=== PATIENT | male | born 1990 ===

== ENCOUNTER 2017-03-30 19:33 | Emergency (ER) | payer MEDICAID ==
--- NOTE | 2017-03-30 21:07 | ED PDOC ---
HPI: General Adult Time Seen by Provider: 03/30/17 20:24 Chief Complaint (Nursing): Flu-like Symptoms Chief Complaint (Provider): Generalized weakness History Per: Patient History/Exam Limitations: no limitations Additional Complaint(s): Patient is a 26 y/o male with no significant past medical history presenting to the emergency department for generalized weakness, nausea, and fatigue since yesterday. States that he sometimes feels breathless as though he is about to collapse. He adds that he is depressed and anxious. Denies fever, cough, vomiting, diarrhea, dizziness, chest pain, abdominal pain, shortness of breath, SI, HI, hallucinations, or other complaints. PCP: Dr. Jeffrey Reinoso Past Medical History Reviewed: Historical Data, Nursing Documentation, Vital Signs Vital Signs: Last Vital Signs Temp 98.6 F 03/30/17 19:37 Pulse 99 H 03/30/17 19:37 Resp 18 03/30/17 19:37 BP 152/85 H 03/30/17 19:37 Pulse Ox 98 03/31/17 01:59 - Medical History PMH: Depression Denies: Diabetes, Hepatitis, HIV, HTN, Chronic Kidney Disease, Seizures, Sexually Transmitted Disease Comment Only: Hyperthyroidism (possible low Thyroid levels) - Family History Family History: States: No Known Family Hx - Home Medications Home Medications: Ambulatory Orders Medication Instructions Recorded Lorazepam [Ativan] 0.5 mg PO BID PRN #10 tab 03/30/17 - Allergies Allergies/Adverse Reactions: Allergies Allergy/AdvReac Type Severity Reaction Status Date / Time No Known Allergies Allergy Verified 03/30/17 19:37 Review of Systems ROS Statement: Except As Marked, All Systems Reviewed And Found Negative Constitutional: Positive for: Weakness, Other ("breathless" fatigue). Negative for: Fever Cardiovascular: Negative for: Chest Pain Respiratory: Negative for: Cough, Shortness of Breath Gastrointestinal: Positive for: Nausea. Negative for: Vomiting, Abdominal Pain Neurological: Negative for: Dizziness Physical Exam - Reviewed Nursing Documentation Reviewed: Yes Vital Signs Reviewed: Yes - Physical Exam Appears: Positive for: Well, Non-toxic, In Acute Distress (+appears anxious) Head Exam: Positive for: ATRAUMATIC, NORMAL INSPECTION, NORMOCEPHALIC Skin: Positive for: Normal Color, Warm, Dry Eye Exam: Positive for: Normal appearance Neck: Positive for: Normal Cardiovascular/Chest: Positive for: Regular Rate, Rhythm. Negative for: Murmur Respiratory: Positive for: Normal Breath Sounds. Negative for: Accessory Muscle Use, Respiratory Distress Gastrointestinal/Abdominal: Positive for: Normal Exam, Soft. Negative for: Tenderness Extremity: Positive for: Normal ROM. Negative for: Pedal Edema Neurologic/Psych: Positive for: Alert, Oriented (x3), Mood/Affect (anxious) - Laboratory Results Result Diagrams: 03/30/17 21:10 03/30/17 21:10 - ECG O2 Sat by Pulse Oximetry: 98 (RA) Pulse Ox Interpretation: Normal Medical Decision Making Medical Decision Making: Time: 21:02 Initial impression: Generalized weakness Initial plan: EKG CMP Urine Drug Screening CBC Ativan 0.5 mg IVP Normal Saline 1 L IV IV Insertion Urinalysis Reevaluation EKG: NSR at 91 bpm, (-) acute ST changes, as read by ALINE. Labs reviewed and are within normal limits. On reevaluation, patient is resting comfortably in bed in no acute distress, reports improvement in his symptoms, states that he feels less anxious and less restless. Patient states that his psychiatrist recently increased his dose of Risperdal and that he also takes Depakote. Otherwise the patient has no additional complaints at this time. Patient notified that he will be seen and evaluated by crisis, which he is agreeable to. Patient is medically cleared for crisis evaluation. Patient still pending crisis evaluation at this time. Case endorsed to ALINE Ward at midnight pending crisis evaluation and final disposition. ~ Scribe Attestation: Documented by Liz Branch, acting as a scribe for ALINE Ramires. Provider Scribe Attestation: All medical record entries made by the Scribe were at my direction and personally dictated by me. I have reviewed the chart and agree that the record accurately reflects my personal performance of the history, physical exam, medical decision making, and the department course for this patient. I have also personally directed, reviewed, and agree with the discharge instructions and disposition. Disposition - Clinical Impression Clinical Impression: Generalized weakness, Anxiety Counseled Patient/Family Regarding: Studies Performed, Diagnosis - Disposition Disposition: Transfer of Care (Case endorsed to ALINE Ward at 0000 pending crisis evaluation and disposition) Disposition Time: 00:00 Condition: IMPROVED Prescriptions: Lorazepam [Ativan] 0.5 mg PO BID PRN #10 tab PRN Reason: Anxiety Instructions: Weakness (ED), Anxiety (ED) Forms: [facility] (Indian), [facility] ED School/Work Excuse
[2017-03-30] MEDS ORDERED: Sodium Chloride 0.9% 1,000 ML IV SCH (21:15)
[2017-03-30 21:21] LABS: BASO % 0.3 % (0.0-2.0); EOS # 0.1 K/uL (0.0-0.7); EOS % 0.8 % (0.0-4.0); HEMOGLOBIN 12.7 g/dL (12.0-18.0); LYMPH # 1.2 K/uL (1.0-4.3); LYMPH % 16.9 % (20.0-40.0); MEAN CELL VOLUME 81.3 fl (80.0-94.0); MEAN CORPUSCULAR HGB CONC 33.3 g/dL (33.0-37.0); MEAN PLATELET VOLUME 8.5 fl (7.2-11.7); MONO # 0.3 K/uL (0.0-0.8); MONO % 4.5 % (0.0-10.0); NEUT # 5.6 K/uL (1.8-7.0); NEUT % 77.5 % (50.0-75.0); NRBC % 0.1 % (0.0-0.0); RBC 4.68 Mil/uL (4.40-5.90); RED CELL DISTRIBUTION WIDTH 13.3 % (11.5-14.5); WHITE BLOOD COUNT 7.3 K/uL (4.8-10.8)
[2017-03-30 21:31] LABS: ALB/GLOB RATIO 1.5 (1.0-2.1); ALBUMIN 4.7 g/dL (3.5-5.0); ALT/SGPT 33 U/L (21-72); AST/SGOT 28 U/L (17-59); BLOOD UREA NITROGEN 13 mg/dl (9-20); CALCIUM 10.3 mg/dL (8.4-10.2); GFR AFRICAN-AMERICAN > 60; GFR NON-AFRICAN AMERICAN > 60
[2017-03-30 22:07] LABS: BARBITURATES, UR NEGATIVE (NEGATIVE); BENZODIAZEPINES, UR NEGATIVE (NEGATIVE); OPIATES, UR NEGATIVE (NEGATIVE); PHENCYCLIDINE, UR NEGATIVE (NEGATIVE)
[2017-03-30 22:20] LABS: URINE BILIRUBIN NEGATIVE (NEGATIVE); URINE BLOOD NEGATIVE (NEGATIVE); URINE CLARITY CLEAR (Clear); URINE COLOR STRAW (YELLOW); URINE GLUCOSE (UA) NEG (Normal); URINE LEUKOCYTE ESTERASE NEG Leu/uL (Negative); URINE NITRATE NEGATIVE (NEGATIVE); URINE PROTEIN NEGATIVE (NEGATIVE); URINE UROBILINOGEN 0.2-1.0 mg/dL (0.2-1.0)
[2017-03-30 22:48] VITALS: BMI 16.2
[2017-03-30 22:49] VITALS: BP 152/85; PULSE 99; RESP 18; TEMP 98.6; O2SAT 98
--- NOTE | 2017-03-31 01:55 | ED PDOC ---
- Laboratory Results Result Diagrams: 03/30/17 21:10 03/30/17 21:10 - ECG O2 Sat by Pulse Oximetry: 98 (RA) - Progress ED Course And Treament: 0000 Signed out to me pending crisis evaluation 0100 Pt. in no distress. Resting comfortably. Reports feeling better. Marily SI/HI, hallucinations. 0153 Pt. evaluated by Edelmira, layup worker, who discussed case with Dr. Drew and cleared pt. for discharge. Disposition - Clinical Impression Clinical Impression: Generalized weakness, Anxiety - POA Present On Arrival: None - Disposition Disposition: Routine/Home Disposition Time: 01:54 Condition: IMPROVED Prescriptions: Lorazepam [Ativan] 0.5 mg PO BID PRN #10 tab PRN Reason: Anxiety Instructions: Weakness (ED), Anxiety (ED) Forms: [facility] (Armenian), [facility] ED School/Work Excuse
--- NOTE | 2017-03-31 17:56 | CARD ---
APPROVED REPORT EKG Measurement Heart [id number] <Conclusion> Normal sinus rhythm with sinus arrhythmia Normal ECG
== END 2017-03-31 02:22 | disposition home or self-care (01) ==
LOC: H.ER 19:33
DX: R53.1 Weakness (principal); F41.9 Anxiety disorder, unspecified; E05.90 Thyrotoxicosis, unspecified without thyrotoxic crisis or storm; F32.9 Major depressive disorder, single episode, unspecified
CPT/HCPCS: 80053; 80320; 80324; 80345; 80346; 80349; 80353; 80358; 80361; 81003; 82948; 83992; 85025; 93005; 96360; 96361; 96374; 99283; J2060; J7040

== ENCOUNTER 2018-06-13 15:47 | Emergency (ER) | payer MEDICAID ==
[2018-06-13 15:47] VITALS: BMI 16.2
--- NOTE | 2018-06-13 17:49 | RAD ---
Date of service: 06/13/2018 HISTORY: pain COMPARISON: No prior. TECHNIQUE: 2 views obtained. FINDINGS: BONES: No anterior-posterior subluxation. Trace rightward convexity to the thoraco lumbar spine could be positional.. No fracture. DISC SPACES: Normal. SOFT TISSUES: Normal. OTHER FINDINGS: None. IMPRESSION: No fracture or lytic lesions. Other findings as above.
[2018-06-13 17:59] VITALS: BP 122/60; PULSE 71; RESP 18; TEMP 98; O2SAT 99
--- NOTE | 2018-06-13 19:05 | ED PDOC ---
HPI: Back Time Seen by Provider: 06/13/18 16:29 Chief Complaint (Nursing): Back Pain Chief Complaint (Provider): Back Pain History Per: Patient History/Exam Limitations: no limitations Onset/Duration Of Symptoms: Days (x2) Current Symptoms Are (Timing): Better Additional Complaint(s): Patient is a 28 y/o male with a PMHx of depression who presents to the ED for evaluation of back pain for the past two days. Patient states the pain comes and goes and lasts for a couple seconds. Patient states he was driving home today and felt the pain so decided to come to the ED. While in the waiting room he reports the pain returned briefly. Patient added that the pain occasionally occurs in his neck over the last few years and has been seen here for that. PPatient claims he sits a lot at work which may be causing the pain. Patient at this moment denies any pain. Patient also denies chest pain, radiating pain, numbness or tingling, injury or trauma or difficulty breathing. Patient has an appointment with his PCP scheduled for next week. Patient is currently requesting blood work. atient also noted that he had difficulty sleeping 2 nights ago, which is normal for him, he occasionally has insomnia and sees his doctor for it, but denies it being a current concern. PCP: Dr. Jeffrey Reinoso Past Medical History Reviewed: Historical Data, Nursing Documentation, Vital Signs Vital Signs: Last Vital Signs Temp 98 F 06/13/18 17:59 Pulse 71 06/13/18 17:59 Resp 18 06/13/18 17:59 BP 122/60 06/13/18 17:59 Pulse Ox 99 06/13/18 17:59 - Medical History PMH: Depression Denies: Diabetes, Hepatitis, HIV, HTN, Chronic Kidney Disease, Seizures, Sexually Transmitted Disease Comment Only: Hyperthyroidism (possible low Thyroid levels) - Surgical History Surgical History: No Surg Hx - Family History Family History: States: No Known Family Hx - Social History Current smoker - smoking cessation education provided: No Ex-Smoker (has not smoked in the last 12 months): No Alcohol: None Drugs: Denies - Home Medications Home Medications: Ambulatory Orders Medication Instructions Recorded Lorazepam [Ativan] 0.5 mg PO BID PRN #10 tab 03/30/17 - Allergies Allergies/Adverse Reactions: Allergies Allergy/AdvReac Type Severity Reaction Status Date / Time No Known Allergies Allergy Verified 03/30/17 19:37 Review of Systems ROS Statement: Except As Marked, All Systems Reviewed And Found Negative Cardiovascular: Negative for: Chest Pain Respiratory: Negative for: Other (difficulty breathing) Musculoskeletal: Positive for: Neck Pain, Back Pain Physical Exam - Reviewed Nursing Documentation Reviewed: Yes Vital Signs Reviewed: Yes - Physical Exam Comments: GENERAL APPEARANCE: Patient is awake, alert, oriented x 3, in no acute distress. SKIN: Warm, dry; (-) cyanosis. EYES: (-) conjunctival pallor. ENMT: Mucous membranes moist. NECK: (-) tenderness, (-) stiffness, (-) lymphadenopathy. CHEST AND RESPIRATORY: (-) chest wall tenderness (-)crepitus, swelling, ecchymosis, (-) rales, (-) rhonchi, (-) wheezes; breath sounds equal bilaterally. HEART AND CARDIOVASCULAR: (-) irregularity; (-) murmur, (-) gallop. ABDOMEN AND GI: Soft; (-) tenderness; (-) palpable mass. BACK: (-) reproducible tenderness, (-) deformity. (+)FROM EXTREMITIES: (-) deformity. Distal pulses good bilaterally. NEURO AND PSYCH: anxious, bizarre affect. Mental status as above. Intact sensation bilaterally; normal strength in extension of the knees, plantar and dorsiflexion of the toes. DTRs symmetric. - ECG O2 Sat by Pulse Oximetry: 99 (RA) Pulse Ox Interpretation: Normal Medical Decision Making Medical Decision Making: Time: 1702 Impression: Back and Neck pain Plan: Thoracic Spine [Rad] Due to patient's bizarre affect patient I offered crisis evaluation. Patient did not want crisis evaluation, denying SI/HI and visual/auditory hallucinations. Time: 1744 FINDINGS: BONES: No anterior-posterior subluxation. Trace rightward convexity to the thoraco lumbar spine could be positional.. No fracture. DISC SPACES: Normal. SOFT TISSUES: Normal. OTHER FINDINGS: None. IMPRESSION: No fracture or lytic lesions. Other findings as above. Time: 1754 On reevaluation patient does not have any back pain. Patient's xray results were fine. Patient instructed to followup with PCP. Discussed results, diagnosis, treatment, return precautions and f/u with pt who is understanding, i nagreement and stable for dc Scribe Attestation: Documented by Jesús Brooke, acting as a scribe for Chris Gan PA-C Provider Scribe Attestation: All medical record entries made by the Scribe were at my direction and personally dictated by me. I have reviewed the chart and agree that the record accurately reflects my personal performance of the history, physical exam, medical decision making, and the department course for this patient. I have also personally directed, reviewed, and agree with the discharge instructions and disposition. Disposition - Clinical Impression Clinical Impression: Mid back pain - Patient ED Disposition Is Patient to be Admitted: No Counseled Patient/Family Regarding: Studies Performed, Diagnosis, Need For Followup, Rx Given - Disposition Referrals: Jeffrey Reinoso MD [Family Provider] - Disposition: Routine/Home Disposition Time: 17:55 Condition: STABLE Additional Instructions: Thank you for letting us take care of you today. You were treated for back pain. The emergency medical care you received today was directed at your acute symptoms. If you were prescribed any medication, please fill it and take as directed. It may take several days for your symptoms to resolve. Return to the Emergency Department if your symptoms worsen, do not improve, or if you have any other problems. Please contact your doctor in 2 days for re-evaluation and follow up / or call one of the physicians/clinics you have been referred to that are listed on the Patient Visit Information form that is included in your discharge packet. Bring any paperwork you were given at discharge with you along with any medications you are taking to your follow up visit. Our treatment cannot replace ongoing medical care by a primary care provider (PCP) outside of the emergency department. Instructions: Upper Back Pain (DC) Forms: [facility] (Zambian) Print Language: SYRIAN - POA Present On Arrival: None
== END 2018-06-13 17:59 | disposition home or self-care (01) ==
LOC: H.ER 15:47
DX: M54.9 Dorsalgia, unspecified (principal)